=== PATIENT | male | born 1935 | race Caucasian/White ===

== ENCOUNTER 2018-09-29 20:07 | Emergency (ER) | payer OTHER ==
[~2018-09-29] VITALS: Ht 182.9 cm; Wt 74.8 kg
[2018-09-30] MEDS ORDERED: SODIUM CHLORIDE 0.9% 500 ML IV ONE (02:12)
[2018-09-30 02:46] LABS: Basophils # (auto) 0 uL; Basophils % (auto) 0.3 % (0.0-2.0); Eosinophils # (auto) 0.1 uL; Eosinophils % (auto) 0.8 % (0.0-7.0); Hematocrit 33.4 % (41.0-53.0); Hemoglobin 11.2 g/dL (13.5-17.5); Lymphocytes # (auto) 1.2 uL; Lymphocytes % (auto) 11.1 % (10.0-50.0); Mean Corpuscular Hemoglobin 30.5 pg (28.0-32.0); Mean Corpuscular Hgb Conc. 33.6 g/dL (32.0-36.0); Mean Corpuscular Volume 90.7 fL (80.0-100.0); Monocytes # (auto) 0.5 uL; Monocytes % (auto) 4.9 % (0.0-12.0); Neutrophils # (auto) 9.1 uL; Neutrophils % (auto) 82.9 % (37.0-80.0); Platelet Count (auto) 168 10^3/uL (140-450); Red Blood Cells 3.69 10^6/uL (4.5-5.90); Red Cell Distribution Width 15.2 % (11.8-14.3); White Blood Cell 10.9 10^3/uL (4.4-10.8)
[2018-09-30] MEDS ORDERED: MORPHINE SULF INJ 2 MG/ML SYRINGE 1ML IV ONE ×2 (03:00→07:30)
[2018-09-30 03:15] LABS: BUN/Creatinine Ratio 17.6; Calcium 8.6 mg/dL (8.5-10.1); Potassium 4.6 mmol/L (3.5-5.1)
[2018-09-30 03:18] LABS: Partial Thromboplastin Time 33.6 sec (23.78-33.04); Prothrombin Time 10.7 sec (9.27-12.13)
[2018-09-30] MEDS ORDERED: InsuLIN REG 1unit/0.01ml Soln (100units/ml) SC ONE (03:30)
[2018-09-30] MEDS ORDERED: cefTRIAXone 1GM/50ML D5W 50 ML IV ONE (03:30)
[2018-09-30 05:26] LABS: Urine Bacteria FEW /hpf (None Seen); Urine Blood 2+ /uL (Negative); Urine Budding Yeast OCCASIONAL /hpf (None Seen); Urine Mucus FEW (None Seen); Urine Specific Gravity 1.014 (1.001-1.035); Urine WBC 186 /hpf (0 - 3); Urine WBC Clumps PRESENT /hpf (None Seen)
[2018-09-30 07:17] VITALS: BP 163/84
[2018-09-30] MEDS ORDERED: ONDANSETRON HCL 4 MG/2 ML VIAL IV ONE (07:30)
== END 2018-09-30 07:52 | disposition short-term general hospital (02) ==
LOC: EDBD 20:07 → ER 20:14
DX: S32.592A Other specified fracture of left pubis, initial encounter for closed fracture (principal); S32.491A Other specified fracture of right acetabulum, initial encounter for closed fracture; S51.001A Unspecified open wound of right elbow, initial encounter; E11.65 Type 2 diabetes mellitus with hyperglycemia; N39.0 Urinary tract infection, site not specified; E78.5 Hyperlipidemia, unspecified; I10 Essential (primary) hypertension; W01.0XXA Fall on same level from slipping, tripping and stumbling without subsequent striking against object, initial encounter; Y93.89 Activity, other specified; Y99.8 Other external cause status; Y92.89 Other specified places as the place of occurrence of the external cause
CPT/HCPCS: 36415; 72192; 73080; 73502; 80048; 81001; 82962; 85025; 85610; 85730; 87040; 87086; 94761; 96365; 96372; 96375; 96376; 99285; J0696; J1815; J2270; J2405